=== PATIENT | female | born 1975 | race Caucasian/White ===

== ENCOUNTER 2018-03-07 14:13 | Emergency (ER) | payer OTHER ==
[2018-03-07] MEDS ORDERED: METOCLOPRAMIDE 10 MG/2mL INJ ONE (15:09)
[2018-03-07] MEDS ORDERED: DIPHENHYDRAMINE 50 MG/ML VIAL ONE (15:09)
[2018-03-07] MEDS ORDERED: KETOROLAC 30 MG/ML INJ ONE (15:10)
[2018-03-07 16:05] LABS: Urine Blood NEGATIVE (NEG); Urine Glucose 1+ (NEG); Urine Protein NEGATIVE (NEG); Urine pH 6.5 (5.0-7.0)
--- NOTE | 2018-03-07 16:09 | RAD REPORT ---
EXAM DESCRIPTION: CT - Head Brain Wo Cont - 03/07/2018 3:52 pm CLINICAL HISTORY: Persistent headache, nausea and vomiting COMPARISON: CT head October 2016 TECHNIQUE: Axial 5 mm thick images of the head were obtained without IV contrast. All CT scans are performed using dose optimization technique as appropriate and may include automated exposure control or mA/KV adjustment according to patient size. FINDINGS: No intracranial hemorrhage, mass, edema or shift of mid-line structures. No acute infarcti on changes seen. No abnormal extra-axial fluid collections. Ventricles are normal. Mastoid air cells and visualized portions of the paranasal sinuses are clear. No acute bony findings. IMPRESSION: Negative non-contrast CT head examination. No identifiable change from the prior study.
--- NOTE | 2018-03-07 16:35 | EDPHYS ---
Physician Documentation [facility] Name: Tania Briggs Age: 42 yrs Sex: Female : 1975 Arrival Date: 03/07/2018 Time: 14:16 Bed 28 Private MD: Morris Gonzalez H ED Physician Armando Darling HPI: 03/07 16:31 This 42 yrs old Female presents to ER via Ambulatory with complaints of gs MIGRAINE, Dizziness, Vomiting. 16:31 The patient complains of pain to the forehead. The patient describes the headache as gs throbbing. Onset: The symptoms/episode began/occurred suddenly. Associated signs and symptoms: Pertinent positives: nausea. Severity of symptoms: At its worst the pain was severe, hasnt had migraine. 16:32 Associated signs and symptoms: Pertinent positives: vomiting. Severity of symptoms: At gs its worst the pain was has had migraines pain not as bad as previous migraines and has had much worse migraines but says usually not sudden onset like today.. Headache History: The patient has had previous headaches and this one is more severe than previous episodes. The symptoms are alleviated by nothing. the symptoms are aggravated by nothing. The patient has experienced similar episodes in the past, multiple times. 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 - Social history:: Smoking status: unknown. ROS: 16:32 All other systems are negative. gs Exam: 16:32 Head/Face: Normocephalic, atraumatic. Eyes: Pupils equal round and reactive to light, gs extra-ocular motions intact. Lids and lashes normal. Conjunctiva and sclera are non-icteric and not injected. Cornea within normal limits. Periorbital areas with no swelling, redness, or edema. ENT: Nares patent. No nasal discharge, no septal abnormalities noted. Tympanic membranes are normal and external auditory canals are clear. Oropharynx with no redness, swelling, or masses, exudates, or evidence of obstruction, uvula midline. Mucous membranes moist. Neck: Trachea midline, no thyromegaly or masses palpated, and no cervical lymphadenopathy. Supple, full range of motion without nuchal rigidity, or vertebral point tenderness. No Meningismus. Chest/axilla: Normal chest wall appearance and motion. Nontender with no deformity. No lesions are appreciated. Cardiovascular: Regular rate and rhythm with a normal S1 and S2. No gallops, murmurs, or rubs. Normal PMI, no JVD. No pulse deficits. Respiratory: Lungs have equal breath sounds bilaterally, clear to auscultation and percussion. No rales, rhonchi or wheezes noted. No increased work of breathing, no retractions or nasal flaring. Abdomen/GI: Soft, non-tender, with normal bowel sounds. No distension or tympany. No guarding or rebound. No evidence of tenderness throughout. Back: No spinal tenderness. No costovertebral tenderness. Full range of motion. Skin: Warm, dry with normal turgor. Normal color with no rashes, no lesions, and no evidence of cellulitis. MS/ Extremity: Pulses equal, no cyanosis. Neurovascular intact. Full, normal range of motion. Neuro: Awake and alert, GCS 15, oriented to person, place, time, and situation. Cranial nerves II-XII grossly intact. Motor strength 5/5 in all extremities. Sensory grossly intact. Cerebellar exam normal. Normal gait. 16:32 Constitutional: The patient appears alert, awake. Vital Signs: 14:20 BP 131 / 65; Pulse 70; Resp 18; Temp 97.6(TE); Pulse Ox 97% on R/A; Weight 142.43 kg; hj Height 5 ft. 7 in. (170.18 cm); Pain 10/10; 15:55 BP 108 / 64; Pulse 62; Resp 17; Pulse Ox 99% on R/A; tl3 17:01 BP 108 / 55; Pulse 75; Resp 18; Pulse Ox 100% ; tl3 14:20 Body Mass Index 49.18 (142.43 kg, 170.18 cm) MDM: 14:58 Patient medically screened. gs 16:32 Differential diagnosis: migraine, neoplasm, subarachnoid bleed, vasomotor headache. Data reviewed: vital signs, nurses notes. Response to treatment: the patient's symptoms have resolved after treatment, and as a result, I will discharge patient. ED course: ct headache for headache onset different. 03/07 15:55 Order name: Urine Dipstick--Ancillary (enter results); Complete Time: 16: bd 03/07 15:56 Order name: Urine --Ancillary (enter results); Complete Time: 16: bd 03/07 15:00 Order name: CT Head Brain wo Cont; Complete Time: 16:23 gs Administered Medications: 15:21 Drug: Benadryl 25 mg Route: IVP; Infused Over: 3 mins; Site: right antecubital; tl3 17:03 Follow up: Response: No adverse reaction; Marked relief of symptoms tl3 15:21 Drug: TORadol 30 mg Route: IVP; Site: right antecubital; tl3 17:03 Follow up: Response: No adverse reaction; Marked relief of symptoms tl3 15:22 Drug: Reglan 10 mg Route: IVP; Site: right antecubital; tl3 17:03 Follow up: Response: No adverse reaction; Marked relief of symptoms tl3 Disposition: 03/07/18 16:35 Discharged to Home. Impression: Headache. - Condition is Stable. - Discharge Instructions: General Headache Without Cause, Migraine Headache. - Prescriptions for Fiorinal 50- 325-40 mg Oral Capsule - take 1 capsule by ORAL route every 6 hours As needed - not to exceed 6 capsules per day; 12 capsule. - Medication Reconciliation Form, Thank You Letter, Antibiotic Education, Prescription Opioid Use form. - Follow up: Private Physician; When: 2 - 3 days; Reason: Re-evaluation by your physician. Signatures: Dispatcher [employer] EDMS Nabor Savage RN RN Armando Darling MD MD Arlin Waite RN RN tl3 Corrections: (The following items were deleted from the chart) 17:03 16:35 03/07/2018 16:35 Discharged to Home. Impression: Headache. Condition is Stable. tl3 Forms are Medication Reconciliation Form, Thank You Letter, Antibiotic Education, Prescription Opioid Use. Follow up: Private Physician; When: 2 - 3 days; Reason: Re-evaluation by your physician. gs
--- NOTE | 2018-03-07 16:35 | ER ---
Nurse's Notes [facility] Name: Tania Briggs Age: 42 yrs Sex: Female : 1975 Arrival Date: 03/07/2018 Time: 14:16 Bed 28 Private MD: Morris Gonzalez H Diagnosis: Headache Presentation: 03/07 14:18 Presenting complaint: Patient states: i have migraine for 2 days, reports nausea and hj vomiting and vision sensitivity;. Transition of care: patient was not received from another setting of care. Onset of symptoms was March 07, 2018. Initial Sepsis Screen: Does the patient meet any 2 criteria? No. Patient's initial sepsis screen is negative. Does the patient have a suspected source of infection? No. Patient's initial sepsis screen is negative. Care prior to arrival: None. 14:18 Method Of Arrival: Ambulatory 14:18 Acuity: MARAL 3 hj Triage Assessment: 14:20 General: Appears in no apparent distress. uncomfortable, Behavior is calm, cooperative, hj appropriate for age. Pain: Complains of pain in head. GI: Reports nausea, vomiting. 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 - Social history:: Smoking status: unknown. Screenin:00 Abuse screen: Denies threats or abuse. Nutritional screening: No deficits noted. tl3 Tuberculosis screening: No symptoms or risk factors identified. Fall Risk None identified. Assessment: 14:20 GI: Abdomen is non-distended, obese. hj 15:00 General: Appears distressed, uncomfortable, well groomed, well developed, well tl3 nourished, Behavior is calm, cooperative, appropriate for age. Pain: Complains of pain in headache Pain currently is 10 out of 10 on a pain scale. Pain began 1 day ago. Neuro: Level of Consciousness is awake, alert, obeys commands, Oriented to person, place, time, situation, Appropriate for age. Cardiovascular: No deficits noted. Heart tones S1 S2 present. Respiratory: Airway is patent Trachea midline Respiratory effort is even, unlabored, Respiratory pattern is regular, symmetrical, Breath sounds are clear bilaterally. GI: No signs and/or symptoms were reported involving the gastrointestinal system. GI: No deficits noted. GI: Abdomen is non-distended, obese. : No signs and/or symptoms were reported regarding the genitourinary system. EENT: No signs and/or symptoms were reported regarding the EENT system. Derm: No signs and/or symptoms reported regarding the dermatologic system. Musculoskeletal: No signs and/or symptoms reported regarding the musculoskeletal system. 15:55 Reassessment: No changes from previously documented assessment. Patient and/or family tl3 updated on plan of care and expected duration. Pain level reassessed. Patient is alert, oriented x 3, equal unlabored respirations, skin warm/dry/pink. pt returned from CT, blankets provided by radiology. 17:01 Reassessment: Patient appears in no apparent distress at this time. No changes from tl3 previously documented assessment. Patient and/or family updated on plan of care and expected duration. Pain level reassessed. Patient is alert, oriented x 3, equal unlabored respirations, skin warm/dry/pink. pt states pain is much better. Vital Signs: 14:20 BP 131 / 65; Pulse 70; Resp 18; Temp 97.6(TE); Pulse Ox 97% on R/A; Weight 142.43 kg; hj Height 5 ft. 7 in. (170.18 cm); Pain 10/10; 15:55 BP 108 / 64; Pulse 62; Resp 17; Pulse Ox 99% on R/A; tl3 17:01 BP 108 / 55; Pulse 75; Resp 18; Pulse Ox 100% ; tl3 14:20 Body Mass Index 49.18 (142.43 kg, 170.18 cm) ED Course: 14:16 Patient arrived in ED. rg4 14:16 Gonzalez, SuzieAnushaKp is Private Physician. rg4 14:19 Triage completed. hj 14:20 Arm band placed on left wrist. hj 14:35 Armando Darling MD is Attending Physician. 15:00 No apparent distress. Awaiting CT Scan. tl3 15:00 Patient has correct armband on for positive identification. Bed in low position. Call tl3 light in reach. Side rails up X 1. Adult w/ patient. Door closed. Noise minimized. Lights dimmed. 15:00 No provider procedures requiring assistance completed. Inserted saline lock: 22 gauge tl3 in right antecubital area, using aseptic technique. 15:06 Arlin Waite, RN is Primary Nurse. tl3 15:[address] via wheelchair. tl3 15:51 CT Head Brain wo Cont In Process Unspecified. EDMS 17:01 IV discontinued, intact, bleeding controlled, No redness/swelling at site. Pressure tl3 dressing applied. Administered Medications: 15:21 Drug: Benadryl 25 mg Route: IVP; Infused Over: 3 mins; Site: right antecubital; tl3 17:03 Follow up: Response: No adverse reaction; Marked relief of symptoms tl3 15:21 Drug: TORadol 30 mg Route: IVP; Site: right antecubital; tl3 17:03 Follow up: Response: No adverse reaction; Marked relief of symptoms tl3 15:22 Drug: Reglan 10 mg Route: IVP; Site: right antecubital; tl3 17:03 Follow up: Response: No adverse reaction; Marked relief of symptoms tl3 Outcome: 16:35 Discharge ordered by . gs 17:01 Discharged to home tl3 17:01 Discharged to home ambulatory. 17:01 Condition: stable 17:01 Discharge instructions given to patient, family, Instructed on discharge instructions, follow up and referral plans. medication usage, Demonstrated understanding of instructions, follow-up care, medications, Prescriptions given X 1. 17:03 Patient left the ED. tl3 Signatures: Dispatcher [employer] EDMS Nabor Savage RN RN Emma Campbell rg4 Armando Darling MD MD Arlin Waite, RN RN tl3 Corrections: (The following items were deleted from the chart) 14:22 14:20 Pulse 70bpm; Resp 18bpm; Pulse Ox 100% RA; Temp 97.6F Temporal; 142.43 kg; Height hj 5 ft. 7 in.; BMI: 49.1; Pain 10/10; hj 14:23 14:20 Pulse 70bpm; Resp 18bpm; Pulse Ox 97% RA; Temp 97.6F Temporal; 142.43 kg; Height hj 5 ft. 7 in.; BMI: 49.1; Pain 10/10; hj
== END 2018-03-07 17:03 | disposition home or self-care (01) ==
LOC: ER 14:13
DX: R51 Headache (principal); E11.9 Type 2 diabetes mellitus without complications; F41.9 Anxiety disorder, unspecified; E03.9 Hypothyroidism, unspecified; K21.9 Gastro-esophageal reflux disease without esophagitis
CPT/HCPCS: 70450; 81003; 81025; 96374; 96375; 99284; J2765

== ENCOUNTER 2023-07-13 03:38 | Emergency (ER) | payer OTHER ==
[2023-07-13] MEDS ORDERED: DIPHENHYDRAMINE 50 MG/ML VIAL ONE (04:17)
[2023-07-13] MEDS ORDERED: METOCLOPRAMIDE 10 MG/2mL INJ ONE (04:17)
[2023-07-13] MEDS ORDERED: FENTANYL CITR 100 MCG/2 ML ONE (04:19)
[2023-07-13] MEDS ORDERED: KETOROLAC 30 MG/ML INJ ONE (04:19)
[2023-07-13] MEDS ORDERED: NA CHLORIDE 0.9% 1,000 ML ONE (04:19)
[2023-07-13 04:56] LABS: Potassium 4.2 mEq/L (3.5-5.1)
--- NOTE | 2023-07-13 05:13 | EDPHYS ---
Physician Documentation [facility] Name: Tania Briggs Age: 47 yrs Sex: Female : 1975 Arrival Date: 07/13/2023 Time: 03:38 Bed 13 Private MD: ED Physician Zan Portillo HPI: 07/13 03:51 This 47 yrs old Female presents to ER via Unassigned with complaints of sp4 Headache. 03:52 Prior Medications - Xanax. Prilosec . sp4 04:07 Very pleasant 47-year-old female presents with a cute onset of moderate to severe sp4 headache consistent with her prior migraines about 3 days ago. . Historical: - Allergies: 03:58 Morphine (Hives, rash, Itching); as6 - PMHx: 03:58 Anxiety; Diabetes - NIDDM; GERD; Hypothyroidism; as6 - PSHx: 03:58 section; as6 - Immunization history:: Client reports having NOT received the Covid vaccine. - Social history:: Smoking status: Reported history of juuling and/or vaping. - Family history:: not pertinent. ROS: 04:08 Constitutional: Negative for fever, chills, and weight loss, Eyes: Negative for injury, sp4 pain, redness, and discharge, ENT: Negative for injury, pain, and discharge, Neck: Negative for injury, pain, and swelling, Cardiovascular: Negative for chest pain, palpitations, and edema, Respiratory: Negative for shortness of breath, cough, wheezing, and pleuritic chest pain, Abdomen/GI: Negative for abdominal pain, nausea, vomiting, diarrhea, and constipation, Back: Negative for injury and pain, : Negative for injury, bleeding, discharge, and swelling, MS/Extremity: Negative for injury and deformity, Skin: Negative for injury, rash, and discoloration, Neuro: Negative for weakness, numbness, tingling, and seizure, Positive for headache Psych: Negative for depression, anxiety, Allergy/Immunology: Negative for hives, rash, and allergies Endocrine: Negative for neck swelling, polydipsia, polyuria, polyphagia, and weight changes Hematologic/Lymphatic: Negative for swollen nodes, abnormal bleeding, and unusual bruising 04:08 All other systems are negative. Exam: 04:08 Constitutional: This is a well developed, well nourished patient who is awake, alert, sp4 and in no acute distress. Head/Face: Normocephalic, atraumatic. Eyes: Pupils equal round and reactive to light, extra-ocular motions intact. Lids and lashes normal. Conjunctiva and sclera are not injected. Cornea within normal limits. Periorbital areas with no swelling, redness, or edema. ENT: Nares patent. No nasal discharge, no septal abnormalities noted. Tympanic membranes are normal and external auditory canals are clear. Oropharynx with no redness, swelling, or masses, exudates, or evidence of obstruction, uvula midline. Mucous membranes moist. Neck: Trachea midline, no thyromegaly or masses palpated, and no cervical lymphadenopathy. Supple, full range of motion without nuchal rigidity, or vertebral point tenderness. Chest/axilla: Normal chest wall appearance and motion. Nontender with no deformity. No lesions are appreciated. Cardiovascular: Regular rate and rhythm with a normal S1 and S2. No gallops, murmurs, or rubs. Normal PMI, no JVD. No pulse deficits. Respiratory: Lungs have equal breath sounds bilaterally, clear to auscultation and percussion. No rales, rhonchi or wheezes noted. No increased work of breathing, no retractions or nasal flaring. Abdomen/GI: Soft, non-tender, with normal bowel sounds. No distension or tympany. No guarding or rebound. No evidence of tenderness throughout. Back: No spinal tenderness. No costovertebral tenderness. Skin: Warm, dry with normal turgor. Normal color with no rashes, no lesions, and no evidence of cellulitis. MS/ Extremity: Pulses equal, no cyanosis. Neurovascular intact. Full, normal range of motion. Neuro: Awake and alert, GCS 15, oriented to person, place, time, and situation. Cranial nerves II-XII grossly intact. Motor strength 5/5 in all extremities. Sensory grossly intact. Psych: Awake, alert, with orientation to person, place and time. Behavior, mood, and affect are within normal limits Vital Signs: 03:55 BP 149 / 83; Pulse 78; Resp 18 S; Temp 97.9(O); Pulse Ox 99% on R/A; Weight 116.12 kg as6 (R); Height 5 ft. 7 in. (R); Pain 10/10; 04:00 BP 126 / 64; Pulse 71; Resp 18 S; Pulse Ox 100% on R/A; ha1 04:40 BP 125 / 58; Pulse 64; Resp 17; Pulse Ox 96% on R/A; ha1 05:26 BP 118 / 57; Pulse 64; Resp 15 S; Pulse Ox 97% on R/A; ha1 03:55 Body Mass Index 40.09 (116.12 kg, 170.18 cm) as6 03:55 Pain Scale: Adult as6 NIH Stroke Scale Scores: 04:08 NIHSS Score: 0 sp4 Beatriz Coma Score: 04:08 Eye Response: spontaneous(4). Motor Response: obeys commands(6). Verbal Response: sp4 oriented(5). Total: 15. 05:10 Eye Response: spontaneous(4). Motor Response: obeys commands(6). Verbal Response: sp4 oriented(5). Total: 15. MDM: 03:57 Patient medically screened. sp4 05:10 Differential diagnosis: hypertensive headache, migraine, sinusitis, tension headache, sp4 vasomotor headache. Data reviewed: vital signs, nurses notes, old medical records, lab test result(s). Consideration of Admission/Observation Escalation of care including admission/observation considered. ED course: Headache has resolved after the medication. Patient feels ready to go home.. Blood sugar is elevated. Will provide prescription for metformin, glipizide and Fioricet. 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 07/13 04:07 Order name: BMP; Complete Time: 05:07 sp4 07/13 04:07 Order name: Test, Serum; Complete Time: 05:07 sp4 07/13 03:57 Order name: Saline Lock; Complete Time: 04:24 sp4 Administered Medications: 04:13 Drug: diphenhydrAMINE IVP 25 mg Route: IVP; Site: right antecubital; ha1 04:40 Follow up: Response: No adverse reaction ha1 04:15 Drug: Ketorolac IVP 30 mg Route: IVP; Site: right antecubital; ha1 04:40 Follow up: Response: No adverse reaction; Pain is decreased ha1 04:15 Drug: NS 0.9% IV 1000 ml Route: IV; Rate: 1 bolus; Site: right antecubital; ha1 05:26 Follow up: Response: No adverse reaction; IV Status: Completed infusion; IV Intake: ha1 1000ml 04:17 Drug: metoCLOPramide IVP 10 mg Route: IVP; Site: right antecubital; ha1 04:40 Follow up: Response: No adverse reaction; Nausea is decreased ha1 04:19 Drug: fentaNYL (PF) IVP 50 mcg Route: IVP; Site: right antecubital; ha1 04:41 Follow up: Response: No adverse reaction; Pain is decreased; RASS: Alert and Calm (0) ha1 Disposition Summary: 07/13/23 05:12 Discharge Ordered Location: Home sp4 Problem: new sp4 Symptoms: have improved sp4 Condition: Stable sp4 Diagnosis - Migraine without aura, not intractable sp4 - Recurrent migraine headache, uncontrolled diabetes mellitus type 2, history of sp4 hypothyroidism, hyperglycemia associate with diabetes Followup: sp4 - With: Private Physician - When: 7 - 10 days - Reason: Recheck today's complaints Discharge Instructions: - Discharge Summary Sheet sp4 - Chronic Migraine Headache, [id number] sp4 Forms: - Patient Portal Instructions sp4 Prescriptions: - Fioricet 50-300-40 mg Oral capsule - take 1 capsule by ORAL route every 6 hours PRN migraines; 30 capsule; Refills: sp4 0, Product Selection Permitted - Glipizide 5 mg Oral Tablet - take 1 tablet by ORAL route once daily before a meal; 30 tablet; Refills: 0, sp4 Product Selection Permitted - Metformin 1,000 mg Oral Tablet - take 1 tablet by ORAL route every 12 hours with morning and evening meals; 60 sp4 tablet; Refills: 0, Product Selection Permitted NIH Stroke Scale - NIH Stroke Score Date: 07/13/2023 Time: 04:08 Total Score = 0 10. Dysarthria (speech clarity - read or repeat words) - 0(Normal) 11. Extinction and Inattention (visual/tactile/auditory/spatial/personal) - 0(No abnormality) 1a. Level of Consciousness (LOC) - 0(Alert) 1b. Level of Consciousness (LOC) (Month \T\ Age) - 0(Both) 1c. 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 Best Gaze (Lateral Gaze Paresis) - 0(Normal) 3. Visual Field Loss - 0(No visual loss) 4. Facial Palsy - 0(Normal) 5a. Left Arm: Motor (10-second hold) - 0(No drift) 5b. Right Arm: Motor (10-second hold) - 0(No drift) 6a. Left Leg: Motor (5-second hold - always test supine) - 0(No drift) 6b. Right Leg: Motor (5-second hold - always test supine) - 0(No drift) 7. Limb Ataxia (finger/nose \T\ heel/lacey - test with eyes open) - 0(Absent) 8. Sensory Loss (pinprick arms/legs/face) - 0(Normal) 9. Best Language: Aphasia (description/naming/reading) - 0(No aphasia) Initials: sp4 Signatures: Dispatcher [employer] Dante Nowak RN RN as6 Natalie Tee RN RN ha1 Zan Portillo MD MD sp4
--- NOTE | 2023-07-13 05:13 | ER ---
Nurse's Notes [facility] Name: Tania Briggs Age: 47 yrs Sex: Female : 1975 Arrival Date: 07/13/2023 Time: 03:38 Bed 13 Private MD: Diagnosis: Migraine without aura, not intractable;Recurrent migraine headache, uncontrolled diabetes mellitus type 2, history of hypothyroidism, hyperglycemia associate with diabetes Presentation: 07/13 03:55 Chief complaint: Patient states: migraine that started 3 days ago, nausea, photophobia. as6 Coronavirus screen: At this time, the client does not indicate any symptoms associated with coronavirus-19. Ebola Screen: No symptoms or risks identified at this time. Initial Sepsis Screen: Does the patient meet any 2 criteria? No. Patient's initial sepsis screen is negative. Does the patient have a suspected source of infection? No. Patient's initial sepsis screen is negative. Risk Assessment: Do you want to hurt yourself or someone else? Patient reports no desire to harm self or others. Onset of symptoms was July 09, 2023. 03:55 Method Of Arrival: Ambulatory as6 03:55 Acuity: MARAL 3 as6 Triage Assessment: 03:48 Headache History: The patient has had previous headaches and this one is similar to ha1 previous episodes. 05:27 Pain: Also complains of no other associated symptoms. ha1 Historical: - Allergies: 03:58 Morphine (Hives, rash, Itching); as6 - PMHx: 03:58 Anxiety; Diabetes - NIDDM; GERD; Hypothyroidism; as6 - PSHx: 03:58 section; as6 - Immunization history:: Client reports having NOT received the Covid vaccine. - Social history:: Smoking status: Reported history of juuling and/or vaping. - Family history:: not pertinent. Screenin:48 [facility] ED Fall Risk Assessment (Adult) History of falling in the last 3 months, ha1 including since admission No falls in past 3 months (0 pts) Confusion or Disorientation No (0 pts) Intoxicated or Sedated No (0 pts) Impaired Gait No (0 pts) Mobility Assist Device Used No (0 pt) Altered Elimination No (0 pt) Score/Fall Risk Level 0 - 2 = Low Risk Oriented to surroundings, Maintained a safe environment, Hourly rounding (assess needs \T\ fall precautionary measures) done. 04:48 Abuse screen: Denies threats or abuse. Denies injuries from another. Nutritional ha1 screening: No deficits noted. Tuberculosis screening: No symptoms or risk factors identified. Assessment: 03:48 General: Appears uncomfortable, Behavior is calm, cooperative. Pain: Complains of pain ha1 in head Pain does not radiate. Pain currently is 10 out of 10 on a pain scale. Quality of pain is described as pressure, sharp, throbbing, Pain began gradually, Aggravated by light. Neuro: Level of Consciousness is awake, alert, obeys commands, Oriented to person, place, time, situation, Reports headache in entire. Cardiovascular: Patient's skin is warm and dry. Respiratory: Airway is patent Respiratory effort is even, unlabored, Respiratory pattern is regular, symmetrical. GI: Abdomen is round obese, Bowel sounds present X 4 quads. Reports nausea. Musculoskeletal: Circulation, motion, and sensation intact. Range of motion: intact in all extremities. 04:41 Reassessment: Patient and/or family updated on plan of care and expected duration. Pain ha1 level reassessed. Patient is alert, oriented x 3, equal unlabored respirations, skin warm/dry/pink. pain 2/10 Patient states feeling better. Patient states symptoms have improved. 05:26 Reassessment: Patient and/or family updated on plan of care and expected duration. Pain ha1 level reassessed. Patient is alert, oriented x 3, equal unlabored respirations, skin warm/dry/pink. Patient denies pain at this time. Patient states feeling better. Patient states symptoms have improved. Vital Signs: 03:55 BP 149 / 83; Pulse 78; Resp 18 S; Temp 97.9(O); Pulse Ox 99% on R/A; Weight 116.12 kg as6 (R); Height 5 ft. 7 in. (R); Pain 10/10; 04:00 BP 126 / 64; Pulse 71; Resp 18 S; Pulse Ox 100% on R/A; ha1 04:40 BP 125 / 58; Pulse 64; Resp 17; Pulse Ox 96% on R/A; ha1 05:26 BP 118 / 57; Pulse 64; Resp 15 S; Pulse Ox 97% on R/A; ha1 03:55 Body Mass Index 40.09 (116.12 kg, 170.18 cm) as6 03:55 Pain Scale: Adult as6 Beatriz Coma Score: 04:08 Eye Response: spontaneous(4). Motor Response: obeys commands(6). Verbal Response: sp4 oriented(5). Total: 15. 05:10 Eye Response: spontaneous(4). Motor Response: obeys commands(6). Verbal Response: sp4 oriented(5). Total: 15. NIH Stroke Scale Scores: 04:08 NIHSS Score: 0 sp4 ED Course: 03:44 Patient arrived in ED. ag3 03:48 Patient has correct armband on for positive identification. Placed in gown. Bed in low ha1 position. Call light in reach. Side rails up X 1. Adult w/ patient. 03:50 Zan Portillo MD is Attending Physician. sp4 03:58 Triage completed. as6 03:59 Arm band placed on. as6 04:05 Inserted saline lock: 22 gauge in right antecubital area, using aseptic technique. ha1 Blood collected. 04:24 Natalie Tee RN is Primary Nurse. ha1 04:36 BMP Sent. ha1 04:36 Test, Serum Sent. ha1 05:27 Provided Education on: medication administration and follow ups. ha1 05:27 No provider procedures requiring assistance completed. IV discontinued, intact, ha1 bleeding controlled, No redness/swelling at site. Pressure dressing applied. Administered Medications: 04:13 Drug: diphenhydrAMINE IVP 25 mg Route: IVP; Site: right antecubital; ha1 04:40 Follow up: Response: No adverse reaction ha1 04:15 Drug: Ketorolac IVP 30 mg Route: IVP; Site: right antecubital; ha1 04:40 Follow up: Response: No adverse reaction; Pain is decreased ha1 04:15 Drug: NS 0.9% IV 1000 ml Route: IV; Rate: 1 bolus; Site: right antecubital; ha1 05:26 Follow up: Response: No adverse reaction; IV Status: Completed infusion; IV Intake: ha1 1000ml 04:17 Drug: metoCLOPramide IVP 10 mg Route: IVP; Site: right antecubital; ha1 04:40 Follow up: Response: No adverse reaction; Nausea is decreased ha1 04:19 Drug: fentaNYL (PF) IVP 50 mcg Route: IVP; Site: right antecubital; ha1 04:41 Follow up: Response: No adverse reaction; Pain is decreased; RASS: Alert and Calm (0) ha1 Medication: 04:49 VIS not applicable for this client. ha1 Intake: 05:26 IV: 1000ml; Total: 1000ml. ha1 Outcome: 05:12 Discharge ordered by sp4 05:27 Discharged to home ambulatory, with family. ha1 05:27 Condition: stable 05:27 Discharge instructions given to patient, family, Instructed on discharge instructions, follow up and referral plans. medication usage, Demonstrated understanding of instructions, follow-up care, medications, Prescriptions given X 3. 05:28 Patient left the ED. ha1 NIH Stroke Scale - NIH Stroke Score Date: 07/13/2023 Time: 04:08 Total Score = 0 10. Dysarthria (speech clarity - read or repeat words) - 0(Normal) 11. Extinction and Inattention (visual/tactile/auditory/spatial/personal) - 0(No abnormality) 1a. Level of Consciousness (LOC) - 0(Alert) 1b. Level of Consciousness (LOC) (Month \T\ Age) - 0(Both) 1c. LOC Commands (Open \T\ Closes Eyes/Literature Professor) - 0(Both) 2. Best Gaze (Lateral Gaze Paresis) - 0(Normal) 3. Visual Field Loss - 0(No visual loss) 4. Facial Palsy - 0(Normal) 5a. Left Arm: Motor (10-second hold) - 0(No drift) 5b. Right Arm: Motor (10-second hold) - 0(No drift) 6a. Left Leg: Motor (5-second hold - always test supine) - 0(No drift) 6b. Right Leg: Motor (5-second hold - always test supine) - 0(No drift) 7. Limb Ataxia (finger/nose \T\ heel/lacey - test with eyes open) - 0(Absent) 8. Sensory Loss (pinprick arms/legs/face) - 0(Normal) 9. Best Language: Aphasia (description/naming/reading) - 0(No aphasia) Initials: sp4 Signatures: Abi Sauceda ag3 Dante Flores RN RN as6 Natalie Tee RN RN ha1 Zan Portillo MD MD sp4 Corrections: (The following items were deleted from the chart) 04:39 04:38 fentaNYL (PF) IVP 50 mcg IVP in right antecubital ha1 ha1 04:40 04:10 diphenhydrAMINE IVP 25 mg IVP in right antecubital ha1 ha1
[2023-07-13 05:42] VITALS: TEMP 97.9
[2023-07-13 05:58] VITALS: BP 118/57; O2SAT 97
== END 2023-07-13 05:28 | disposition home or self-care (01) ==
LOC: ER 03:38
DX: G43.009 Migraine without aura, not intractable, without status migrainosus (principal); E11.65 Type 2 diabetes mellitus with hyperglycemia; Z88.5 Allergy status to narcotic agent
CPT/HCPCS: 96361; 80048; 36415; 84703; 96375; 96374; 99284; J2765; J1200; J3010; J7030

== ENCOUNTER 2023-08-14 20:24 | Emergency (ER) | payer OTHER ==
--- NOTE | 2023-08-14 22:03 | RAD REPORT ---
EXAM DESCRIPTION: CT - Head Brain Wo Cont - 08/14/2023 9:46 pm CLINICAL HISTORY: Blurred vision COMPARISON: 2018 TECHNIQUE: Computed axial tomography of the head was obtained. IV contrast was not requested. All CT scans are performed using dose optimization technique as appropriate and may include automated exposure control or mA/KV adjustment according to patient size. FINDINGS: An intracranial bleed is not seen The ventricles are normal in caliber No significant hypodense areas within the brain visualized No extra-axial fluid collection is noted. Fluid within the sinuses/ mastoids is not seen IMPRESSION: No acute intracranial abnormality is seen If patient's symptoms persist MRI of the brain would be recommended
[2023-08-14 22:05] LABS: Absolute Lymphocytes (CBC) 3.9 K/uL (0.7-4.9); Hematocrit 39.4 % (36.0-45.0); Lymphocytes % 32.9 % (15.3-44.8); MCV 80.2 fL (80-100); MPV 8.2 fL (7.6-11.3); Platelets 271 thou/uL (152-406); RBC Red Blood Cell Count 4.91 M/uL (3.86-4.86)
[2023-08-14] MEDS ORDERED: KETOROLAC 30 MG/ML INJ ONE (22:23)
[2023-08-14] MEDS ORDERED: DIPHENHYDRAMINE 50 MG/ML VIAL ONE (22:23)
[2023-08-14] MEDS ORDERED: NA CHLORIDE 0.9% 1,000 ML ONE (22:23)
[2023-08-14] MEDS ORDERED: METOCLOPRAMIDE 10 MG/2mL INJ ONE (22:23)
[2023-08-14 22:28] LABS: Bilirubin Direct 0.1 mg/dL (0-0.2); Bilirubin Indirect, Calculated 0.2 mg/dL (0.2-0.8); Bilirubin Total 0.3 mg/dL (0.2-1.0); Potassium 3.4 mEq/L (3.5-5.1); Protein, Total 7.2 g/dL (6.4-8.2)
--- NOTE | 2023-08-14 23:45 | EDPHYS ---
Physician Documentation [facility] Name: Tania Briggs Age: 47 yrs Sex: Female : 1975 Arrival Date: 08/14/2023 Time: 20:24 Bed 6 Private MD: ED Physician Zan Portillo HPI: 08/14 20:38 This 47 yrs old Female presents to ER via Unassigned with complaints of sp4 Vision Problem, Headache. 20:39 PMH - Historical: Allergies: Morphine (Hives, rash, Itching) PMHx: Anxiety; Diabetes - sp4 NIDDM; GERD; Hypothyroidism PSHx: section; . 23:34 47-year-old female who has past medical history of migraine headaches, anxiety, sp4 uncontrolled diabetes, GERD hypothyroidism, presents with acute onset of headache starting 1 hour ago associated with light flashes and blurry vision in the eyes. Patient presents here with complaint of headache and blurry vision which has actually improved prior to arrival . 23:46 Patient's home medications include Synjardy, Fioricet, and Mounjaro. . sp4 Historical: - Allergies: 20:57 Morphine (Hives, rash, Itching); kb3 - Home Meds: 21:00 glimepiride 4 mg Oral tab BID [Active]; levothyroxine 50 mcg tab 1 tab once daily kb3 [Active]; metformin 1 Oral tab 1 tab 2 times per day [Active]; Motrin Oral 800 mg as needed [Active]; Prilosec 40 mg Oral cpDR 1 cap once daily [Active]; Xanax 0.5 mg Oral tab as needed [Active]; - PMHx: 20:57 Anxiety; Diabetes - NIDDM; GERD; Hypothyroidism; Migraine; kb3 - PSHx: 20:57 section; Cholecystectomy; kb3 - Immunization history:: Client reports having NOT received the Covid vaccine. - Social history:: Smoking status: Reported history of juuling and/or vaping. - Family history:: not pertinent. ROS: 23:46 Constitutional: Negative for fever, chills, and weight loss, positive headache, sp4 positive blurry vision, positive flashes of light Eyes: Negative for injury, pain, redness, and discharge, negative vision loss 23:46 All other systems are negative, Exam: 20:40 Constitutional: This is a well developed, well nourished patient who is awake, alert, sp4 and in no acute distress. Head/Face: Normocephalic, atraumatic. Eyes: Pupils equal round and reactive to light, extra-ocular motions intact. Lids and lashes normal. Conjunctiva and sclera are not injected. Cornea within normal limits. Periorbital areas with no swelling, redness, or edema. ENT: Nares patent. No nasal discharge, no septal abnormalities noted. Tympanic membranes are normal and external auditory canals are clear. Oropharynx with no redness, swelling, or masses, exudates, or evidence of obstruction, uvula midline. Mucous membranes moist. Neck: Trachea midline, no thyromegaly or masses palpated, and no cervical lymphadenopathy. Supple, full range of motion without nuchal rigidity, or vertebral point tenderness. Chest/axilla: Normal chest wall appearance and motion. Nontender with no deformity. No lesions are appreciated. Cardiovascular: Regular rate and rhythm with a normal S1 and S2. No gallops, murmurs, or rubs. Normal PMI, no JVD. No pulse deficits. Respiratory: Lungs have equal breath sounds bilaterally, clear to auscultation and percussion. No rales, rhonchi or wheezes noted. No increased work of breathing, no retractions or nasal flaring. Abdomen/GI: Soft, non-tender, with normal bowel sounds. No distension or tympany. No guarding or rebound. No evidence of tenderness throughout. Back: No spinal tenderness. No costovertebral tenderness. Skin: Warm, dry with normal turgor. Normal color with no rashes, no lesions, and no evidence of cellulitis. MS/ Extremity: Pulses equal, no cyanosis. Neurovascular intact. Full, normal range of motion. Neuro: Awake and alert, GCS 15, oriented to person, place, time, and situation. Cranial nerves II-XII grossly intact. Motor strength 5/5 in all extremities. Sensory grossly intact. Psych: Awake, alert, with orientation to person, place and time. Behavior, mood, and affect are within normal limits 23:46 Eyes: Pupils equal round and reactive to light, peripheral visual field exam is sp4 normal, no sign of vision loss peripheral or central Vital Signs: 20:43 BP 127 / 78; Pulse 80; Resp 18; Temp 97.8(O); Pulse Ox 98% on R/A; Weight 112.04 kg; kb3 Height 5 ft. 7 in. ; Pain 05/10; 08/15 00:00 BP 123 / 74; Pulse 83; Resp 18; Pulse Ox 99% ; jb4 08/14 20:43 Body Mass Index 38.69 (112.04 kg, 170.18 cm) kb3 08/14 20:43 Pain Scale: Adult kb3 [place] Coma Score: 08/14 23:46 Eye Response: spontaneous(4). Motor Response: obeys commands(6). Verbal Response: sp4 oriented(5). Total: 15. MDM: 20:42 Patient medically screened. sp4 23:46 Data reviewed: vital signs, nurses notes, lab test result(s), radiologic studies, CT sp4 scan. ED course: EXAM DESCRIPTION: CT - Head Brain Wo Cont - 08/14/2023 9:46 pm CLINICAL HISTORY: Blurred vision COMPARISON: 2018 TECHNIQUE: Computed axial tomography of the head was obtained. IV contrast was not requested. All CT scans are performed using dose optimization technique as appropriate and may include automated exposure control or mA/KV adjustment according to patient size. FINDINGS: An intracranial bleed is not seen The ventricles are normal in caliber No significant hypodense areas within the brain visualized No extra-axial fluid collection is noted. Fluid within the sinuses/ mastoids is not seen IMPRESSION: No acute intracranial abnormality is seen If patient's symptoms persist MRI of the brain would be recommended. ED course: Patient stable for discharge home. Headache is improved. Patient advised to see tutor coordinator for dilated eye exam for management of possible diabetic retinopathy. . 08/14 20:55 Order name: Basic Metabolic Panel; Complete Time: 22:57 sp4 08/14 20:55 Order name: CBC with Diff; Complete Time: 22:57 sp4 08/14 20:55 Order name: LFT's; Complete Time: 22:57 sp4 08/14 20:55 Order name: Magnesium; Complete Time: 22:57 sp4 08/14 20:56 Order name: CK; Complete Time: 22:57 sp4 08/14 21:09 Order name: CT Head Brain wo Cont; Complete Time: 22:57 sp4 08/14 20:55 Order name: IV Saline Lock; Complete Time: 21:59 sp4 08/14 20:55 Order name: Labs collected and sent; Complete Time: 21:59 sp4 08/14 20:55 Order name: O2 Per Protocol; Complete Time: 21:59 sp4 08/14 20:55 Order name: O2 Sat Monitoring; Complete Time: 21:59 sp4 Administered Medications: 22:27 Drug: NS 0.9% IV 1000 ml IV at 1 bolus Per protocol; 1000 mL bolus Route: IV; Rate: 1 cm10 bolus; Site: right antecubital; 08/15 00:20 Follow up: Response: No adverse reaction; IV Status: Completed infusion; IV Intake: kb3 1000ml 08/14 22:27 Not Given (Patient Refused): [id number] mg IVP once cm10 22:27 Not Given (Patient Refused): [id number] mg IVP once; over 1 to 2 minutes cm10 22:27 Not Given (Patient Refused): [id number] mg IVP once cm10 Disposition Summary: 08/14/23 23:44 Discharge Ordered Problem: new sp4 Symptoms: have improved sp4 Condition: Stable sp4 Diagnosis - Migraine without aura, intractable sp4 - Acute blurry vision, diabetes mellitus, type 2 diabetes mellitus sp4 [id number] Followup: sp4 - With: Private Physician - When: 7 - 10 days - Reason: Recheck today's complaints Discharge Instructions: - Discharge Summary Sheet sp4 - Migraine Headache sp4 Forms: - Patient Portal Instructions sp4 Prescriptions: - Fioricet 50-300-40 mg Oral capsule - take 1 capsule ORAL route every 6 hours PRN migraine headache; 30 capsule; sp4 Refills: 0, Product Selection Permitted Signatures: Dispatcher [employer] Odette Piper RN RN kb3 Zan Portillo MD MD sp4 Diana Arguello RN RN cm10
--- NOTE | 2023-08-14 23:45 | ER ---
Nurse's Notes [facility] Name: Tania Briggs Age: 47 yrs Sex: Female : 1975 Arrival Date: 08/14/2023 Time: 20:24 Bed 6 Private MD: Diagnosis: Migraine without aura, intractable;Acute blurry vision, diabetes mellitus, type 2 diabetes mellitus [id number] Presentation: 08/14 20:43 Chief complaint: Patient states: Pt states she started mounjaro recently, had 3rd shot kb3 yesterday, states today, about an hour ago she started having peripheral vision issues, "it was like a kaleidoscope", has a headache and now she has blurry vision. 20:43 Coronavirus screen: Vaccine status: Patient reports being unvaccinated. Ebola Screen: kb3 Patient denies travel to an Ebola-affected area in the 21 days before illness onset. Initial Sepsis Screen: Does the patient meet any 2 criteria? No. Patient's initial sepsis screen is negative. Does the patient have a suspected source of infection? No. Patient's initial sepsis screen is negative. Risk Assessment: Do you want to hurt yourself or someone else? Patient reports no desire to harm self or others. Onset of symptoms was August 14, 2023 at 19:40. 20:43 Method Of Arrival: Ambulatory 3 20:43 Acuity: MARAL 3 kb3 Triage Assessment: 20:50 Headache History: The patient has had previous headaches. General: Appears in no kb3 apparent distress. comfortable, Behavior is calm, cooperative, appropriate for age. 20:50 Pain: Complains of pain in Head Pain currently is 7 out of 10 on a pain scale. Neuro: kb3 Level of Consciousness is awake, alert, obeys commands, Oriented to person, place, time, situation, Swimming Pool Plasterer Helper are equal bilaterally Moves all extremities. Gait is steady, Speech is normal, Facial symmetry appears normal, Pupils are PERRLA, Intact. Cardiovascular: Patient's skin is warm and dry. Respiratory: Airway is patent Respiratory effort is even, unlabored. 21:00 Pain: Also complains of no other associated symptoms. kb3 Historical: - Allergies: 20:57 Morphine (Hives, rash, Itching); kb3 - Home Meds: 21:00 glimepiride 4 mg Oral tab BID [Active]; levothyroxine 50 mcg tab 1 tab once daily kb3 [Active]; metformin 1 Oral tab 1 tab 2 times per day [Active]; Motrin Oral 800 mg as needed [Active]; Prilosec 40 mg Oral cpDR 1 cap once daily [Active]; Xanax 0.5 mg Oral tab as needed [Active]; - PMHx: 20:57 Anxiety; Diabetes - NIDDM; GERD; Hypothyroidism; Migraine; kb3 - PSHx: 20:57 section; Cholecystectomy; kb3 - Immunization history:: Client reports having NOT received the Covid vaccine. - Social history:: Smoking status: Reported history of juuling and/or vaping. - Family history:: not pertinent. Screenin:00 [facility] ED Fall Risk Assessment (Adult) History of falling in the last 3 months, kb3 including since admission No falls in past 3 months (0 pts) Confusion or Disorientation No (0 pts) Intoxicated or Sedated No (0 pts) Impaired Gait No (0 pts) Mobility Assist Device Used No (0 pt) Altered Elimination No (0 pt) Score/Fall Risk Level 0 - 2 = Low Risk Oriented to surroundings, Maintained a safe environment, Educated pt \\T\\ family on fall prevention, incl call for assistance when getting out of bed. Abuse screen: Denies threats or abuse. Denies injuries from another. Nutritional screening: No deficits noted. Tuberculosis screening: No symptoms or risk factors identified. Vital Signs: 20:43 BP 127 / 78; Pulse 80; Resp 18; Temp 97.8(O); Pulse Ox 98% on R/A; Weight 112.04 kg; kb3 Height 5 ft. 7 in. ; Pain 7/10; 08/15 00:00 BP 123 / 74; Pulse 83; Resp 18; Pulse Ox 99% ; jb4 08/14 20:43 Body Mass Index 38.69 (112.04 kg, 170.18 cm) kb3 08/14 20:43 Pain Scale: Adult kb3 Beatriz Coma Score: 08/14 23:46 Eye Response: spontaneous(4). Motor Response: obeys commands(6). Verbal Response: sp4 oriented(5). Total: 15. ED Course: 20:29 Patient arrived in ED. jj6 20:38 Zan Portillo MD is Attending Physician. sp4 20:52 Notified ED physician of other Patient chief complaint. Negative neuro exam during kb3 triage. 20:52 Provided Education on: call light, fall precautions. kb3 20:57 Triage completed. kb3 20:58 Arm band placed on. kb3 21:48 CT Head Brain wo Cont In Process Unspecified. EDMS 21:59 Inserted saline lock: 20 gauge in right antecubital area, using aseptic technique. as6 Blood collected. 21:59 CK Sent. as6 22:00 Basic Metabolic Panel Sent. as6 22:00 CBC with Diff Sent. as6 22:00 LFT's Sent. as6 22:00 Magnesium Sent. as6 08/15 00:20 No provider procedures requiring assistance completed. IV discontinued, intact, kb3 bleeding controlled, No redness/swelling at site. Pressure dressing applied. Administered Medications: 08/14 22:27 Drug: NS 0.9% IV 1000 ml IV at 1 bolus Per protocol; 1000 mL bolus Route: IV; Rate: 1 cm10 bolus; Site: right antecubital; 08/15 00:20 Follow up: Response: No adverse reaction; IV Status: Completed infusion; IV Intake: kb3 1000ml 08/14 22:27 Not Given (Patient Refused): [id number] mg IVP once cm10 22:27 Not Given (Patient Refused): [id number] mg IVP once; over 1 to 2 minutes cm10 22:27 Not Given (Patient Refused): [id number] mg IVP once cm10 Medication: 08/15 00:37 VIS not applicable for this client. kb3 Intake: 00:20 IV: 1000ml; Total: 1000ml. kb3 Outcome: 08/14 23:44 Discharge ordered by . sp4 08/15 00:35 Discharged to home ambulatory, with family, kb3 Condition: stable Discharge instructions given to patient, Instructed on discharge instructions, follow up and referral plans. medication usage, Demonstrated understanding of instructions, follow-up care, medications, 00:48 Patient left the ED. as6 Signatures: Dispatcher [employer] EDMS Rahul Marquis RN RN jb4 Unique Viramontes jj6 Dante Flores RN RN as6 Odette Cartwright RN RN kb3 Zan Portillo MD MD sp4 Diana Arguello, RN RN cm10
[2023-08-15 02:00] VITALS: TEMP 97.8
[2023-08-15 02:01] VITALS: BP 123/74; O2SAT 99
== END 2023-08-15 00:48 | disposition home or self-care (01) ==
LOC: ER 20:24
DX: G43.019 Migraine without aura, intractable, without status migrainosus (principal); H53.8 Other visual disturbances; E11.9 Type 2 diabetes mellitus without complications; F41.9 Anxiety disorder, unspecified; E03.9 Hypothyroidism, unspecified; Z88.5 Allergy status to narcotic agent
CPT/HCPCS: 96361; 85025; 80048; 36415; 83735; 82550; 80076; 70450; 96360; 99284; J7030; J1200; J2765